=== PATIENT | female | born 1960 | race Caucasian/White ===

== ENCOUNTER → 2023-12-22 13:31 | Outpatient (REF) | payer BC, SELFPAY | LOC: WDC 13:31 | PROVIDERS: ATTENDING PHYSICIAN Obstetrics & Gynecology; FAMILY PHYSICIAN Family Medicine | DX: Z12.31 Encounter for screening mammogram for malignant neoplasm of breast (principal) | CPT/HCPCS: 77063; 77067 ==

== ENCOUNTER 2024-08-25 13:23 | Emergency (ER) | payer BC, SELFPAY ==
[2024-08-25 13:29] VITALS: BP 125/78
--- NOTE | 2024-08-25 13:54 | ED.GENMED ---
History of Present Illness
General
Chief Complaint: Musculo-Skeletal Complaint
Time Seen by Provider: 08/25/24 13:54
History of Present Illness
History of Present Illness:
TIME OF INITIAL ENCOUNTER: 1:55 PM
HPI: Patient stumbled and fell playing pickle ball injuring right wrist and right knee. She twisted awkwardly, twisted her right knee and most of her weight landed on the right upper extremity in a FOOSH mechanism of injury. There is no other
injury. Declines analgesia
EXAM:
GENERAL: Well appearing in mild distress
HEENT: Moist oral mucosa
NEUROLOGIC: Excellent strength all extremities, no obvious coordination deficits
PSYCHIATRIC: Appropriate mental status, normal insight and judgement
EXTREMITIES: Tenderness at distal radius, no edema, moves all extremities equally, mild to moderately decreased active range of motion at the right wrist due to pain, some very mild decreased active range of motion at the right knee due to pain with
no bony tenderness or instability on exam
SKIN: No rash, no lesions
NUMBER AND COMPLEXITY OF PROBLEMS ADDRESSED AT THE ENCOUNTER
� Chronic conditions affecting care: Denies any significant past medical history
� Acute Exacerbation and/or Progression of Chronic Illness: This is an acute problem
� Differential Diagnosis includes: Distal radius fracture, wrist sprain, knee sprain, lower extremity fracture
AMOUNT AND/OR COMPLEXITY OF DATA TO BE REVIEWED AND ANALYZED
� I performed an independent evaluation of and my interpretation is:
EKG:
CT:
X-rays: I personally viewed x-ray and agree with radiologist interpretation
Laboratory Studies:
Other:
� Review of other/old records: I reviewed records, the patient had a colonoscopy in 2020 and 2015
� Clinical information was obtained by an independent historian: I spoke to
� Prescriptions/Medications Considered but not given:
� Further testing considered but not performed:
RISK OF COMPLICATIONS AND/OR MORBIDITY OR MORTALITY OF PATIENT MANAGEMENT
� Social determinants of health affecting care: Lives at home
� Discussion with other providers:
� Escalation of care including admission/observation vs risk of discharge considered: Will splint and she is to follow-up with orthopedics
ANY OTHER UPDATES:
Phy Exam
Physical Exam
Physical Exam:
See HPI
Course
Orders/Labs/Results
Orders:
Orders
08/25/24 13:25
CR Knee- Right 4 Or More View* Urgent
Comment:
Reason For Exam: injury
CR Wrist - Right Min 3 Views Urgent
Comment:
Reason For Exam: injury
08/25/24 14:06
Knee Immobilizer Right-Treatme ONCE
Splints/Slings/Crut- Treatment ONCE
Crutches: No
Sling to: Right Arm
Location: Right
Vital Signs
Initial and Last Documented VS:
Initial Vital Signs
Temp Pulse Resp BP Pulse Ox
98.1 F 66 18 125/78 100
08/25/24 13:29 08/25/24 13:29 08/25/24 13:29 08/25/24 13:29 08/25/24 13:29
Last Documented Vital Signs
Temp Pulse Resp BP Pulse Ox
98.1 F 66 18 125/78 100
08/25/24 13:29 08/25/24 13:29 08/25/24 13:29 08/25/24 13:29 08/25/24 13:29
*Critical Care Note
Total Time (30-74mins, 75-104mins- exclusive of procedures): Not Applicable
ED Attending Note
-
Portions of this chart may have been created with voice recognition software.� Occasional wrong word or��sound alike� substitutions may have occurred due to the inherent limitations of voice recognition software.
Discharge Plan
Departure
Patient Disposition: Home (Routine Discharge)
Date of Disposition: 08/25/24
Time of Disposition: 14:07
Patient with high blood pressure during this ER visit?: Yes
Discharge Problem:
Distal radius fracture, right
Instructions: Knee Immobilizer (DC), Wrist Fracture (DC)
Prescriptions:
New
tramadol 50 mg tablet
50 mg PO BID PRN (Reason: Pain) Qty: 6 0RF
Referrals:
Edwin Fox MD [Active] - Follow up in 2-3 days
Activity Restrictions/Additional Instructions:
The x-ray shows a distal radius fracture with some displacement of the fracture fragments. I recommend that you follow-up with Dr. Fox.
Interventions
Interventions:
*Risk Screen - Suicide Last Done: 08/25/24 13:29
*General Assessment Last Done: 08/25/24 13:29
*Neglect/Abuse Screening Last Done: 08/25/24 13:29
ED-Musculoskeletal Assessment Last Done: 08/25/24 14:13
Discharge Date and Time
Print Language: SOU[place]
[2024-08-25 14:49] VITALS: BP 128/71
== END 2024-08-25 14:50 | disposition home or self-care (01) ==
LOC: EMR 13:23
PROVIDERS: EMERGENCY PHYSICIAN Emergency Medicine; FAMILY PHYSICIAN Family Medicine
DX: S52.591A Other fractures of lower end of right radius, initial encounter for closed fracture (principal); S89.91XA Unspecified injury of right lower leg, initial encounter; W01.0XXA Fall on same level from slipping, tripping and stumbling without subsequent striking against object, initial encounter
CPT/HCPCS: 29505; 99284; 73110; 73564

== ENCOUNTER 2024-08-31 06:24 | Day surgery (SDC) | payer BC, SELFPAY ==
[2024-08-29 13:38] VITALS: BMI 26.0
[2024-08-29 13:54] LABS: Hematocrit 36.4 % (37.0-47.0); Hemoglobin 12.3 g/dL (12.0-16.0); Mean Corp Hgb Conc. 33.8 g/dL (33.0-37.0); Mean Corpuscular Hgb 31.5 pg (27.0-31.0); Mean Corpuscular Volume 93.3 fL (81.0-99.0); Platelet Count 254 10^3/uL (130-400); Red Cell Dist. Width 13.2 % (11.5-14.5); White Blood Cell Count 6.9 10^3/uL (4.8-10.8)
[2024-08-31 11:46] VITALS: BP 141/75; BMI 26.0
[2024-08-31] MEDS: TYLENOL 1000 MG PO (11:53)
[2024-08-31 17:15] VITALS: BP 113/64; BP 141/75
--- NOTE | 2024-08-31 17:27 | W.IMMPOSTOP ---
Surgical Immed Post Op Note
-
Primary Surgeon: Aric Scott MD
Assisting Surgeon: Marge Carey PA-C
Pre-op Diagnosis: right distal radius fracture
Post-op Diagnosis: right distal radius fracture
Procedure Performed: open reduction internal fixation right distal radius
Anesthesia Type: general
Specimen / Cultures: none
Estimated Blood Loss: 5mL
Complications: none apparent
Operative Findings: dorsal comminution
Operative dictation # [id number]
[2024-08-31 17:30] VITALS: BP 118/65
[2024-08-31 17:45] VITALS: BP 120/63; BP 121/66
[2024-08-31 18:21] VITALS: BP 118/71
== END 2024-08-31 18:44 | disposition home or self-care (01) ==
LOC: SDS 06:24
PROVIDERS: ATTENDING PHYSICIAN Student in an Organized Health Care Education/Training Program; FAMILY PHYSICIAN Family Medicine
DX: S52.591A Other fractures of lower end of right radius, initial encounter for closed fracture (principal); X58.XXXA Exposure to other specified factors, initial encounter
CPT/HCPCS: 25607; C1713; 36415; 73100; 85027; 93005

== ENCOUNTER 2024-11-25 06:23 | Day surgery (SDC) | payer BC, SELFPAY ==
[2024-11-25] VITALS (8 sets, daily range): BP systolic 128–142; BP diastolic 60–81; BMI 25.0
--- NOTE | 2024-11-25 08:53 | HP.FOC2 ---
Focused History & Physical
Chief Complaint
HPI:
Chief Complaint: Right inguinal hernia
HPI / Indication for Planned Procedure: Patient is a 64-year-old female recently seen in outpatient surgical evaluation secondary to history of right inguinal swelling. It has slightly increased in size over the years. She has more of an awareness
of her hernia being present recently with an occasional pull/tugging sensation but no significant pain or discomfort. After recent evaluation the patient has chosen operative correction and presents today for repair.
Relevant Past Medical History: Other (Osteoporosis, previous history of tobacco use,)
Relevant Social History: Negative
Relevant Family History: Negative
Relevant Past Surgical History: Positive for (D&C, Mohs,)
Review of Systems
Review of Pertinent Systems: All Systems Negative
Medication
See Medication form for detailed medications: Yes
Medication List (including Herbals & OTC):
alendronate 70 mg tablet 70 mg PO TU 08/29/24
calcium 500 mg (as carbonate)-vitamin D3 3.125 mcg (125 unit) tablet 2 tab PO DAILY 08/29/24
Medications Reviewed: Yes
Allergies and Reactions
Patient has Allergies: No
Noted Allergies and Reactions:
Allergy/AdvReac Type Severity Reaction Status Date / Time
No Known Allergies Allergy Verified 11/23/24 13:05
Pertinent Physical Exam
All Other Systems: Negative
Head/Neck: Normal
Lungs: Normal
Heart: Normal
Abdomen: Other (Reducible right inguinal hernia)
Extremities: Normal
Neurological: Normal
Diagnosis / Assessment
64-year-old female presenting for scheduled operative correction symptomatic right inguinal hernia
Plan / Procedure
Robotic assisted laparoscopic repair right inguinal hernia with mesh
Anesthesia/Sedation to be done by Anesthesia Provider: Yes
--- NOTE | 2024-11-25 08:55 | W.SUR.PREOP ---
Pre-Operative Surgical Note
-
I have examined this patient prior to the performance of the scheduled procedure.
The patient's condition is unchanged from the time of the current History and
Physical and the patient is able to undergo the scheduled procedure.
[2024-11-25] MEDS: TYLENOL 1000 MG PO (10:34)
[2024-11-25] MEDS: NORMOSOL-R/PLASMALYTE-A 1000 IV (10:44)
--- NOTE | 2024-11-25 12:00 | W.IMMPOSTOP ---
Surgical Immed Post Op Note
-
Primary Surgeon: Ravi Mcmanus MD
Assisting Surgeon: Cl IVEY; Eloina Lynn
Pre-op Diagnosis: Right inguinal hernia
Post-op Diagnosis: Right inguinal hernia, direct
Procedure Performed: Robotic assisted MARIAM laparoscopic repair right inguinal hernia with mesh; 3D max large mid weight
Anesthesia Type: GETA +0.25% Marcaine with epi
Specimen / Cultures: None
Estimated Blood Loss: 6 mL
Complications: None immediate
Operative Findings: Right direct inguinal hernia; typical direct defect but 2 additional smaller tears also in the direct space identified. Indirect region normal. No femoral component. 3D max large mid weight mesh repair secured to Aquilino's
ligament with 2-0 Vicryl suture x 2. Peritoneal flap closed with 2-0 Monocryl STRATAFIX. Left inguinal region normal. No incidental findings.
--- NOTE | 2024-11-25 15:39 | OR.RPT ---
Operative Report
Operative Report
Date of operative procedure: 11/25/2024
Primary Surgeon: Ravi Mcmanus MD
Assisting Surgeon: Cl IVEY; Eloina Lynn
Pre-op Diagnosis: Right inguinal hernia
Post-op Diagnosis: Right inguinal hernia, direct
Procedure Performed: Robotic assisted laparoscopic MARIAM repair right inguinal hernia with mesh; 3D max large mid weight
Anesthesia Type: GETA +0.25% Marcaine
Specimen / Cultures: None/none
Estimated Blood Loss: 6 mL
Complications: None immediate
Indications for operative procedure: The patient is a 64-year-old female recently seen in outpatient surgical evaluation secondary to history of right inguinal swelling. It has slightly increased in size over the years. She has more of an
awareness of her hernia being present recently with an occasional pull/tugging sensation but no significant pain or discomfort. After recent evaluation the patient has chosen operative correction and presents today for repair.
Brief summary of operative Findings: Right direct inguinal hernia; typical direct defect but 2 additional smaller tears also in the direct space identified. Indirect region normal. No femoral component. 3D max large mid weight mesh repair secured
to Aquilino's ligament with 2-0 Vicryl suture x 2. Peritoneal flap closed with 2-0 Monocryl STRATAFIX. Left inguinal region normal. No incidental findings.
Operation detail: The patient was identified in the preoperative holding area. I confirmed the surgical site and side with the patient preoperatively which was then marked and initialed by myself. She was interviewed by the anesthesia and nursing
staff then brought back to the operating room. The patient was placed on the operating table in supine position. The bilateral upper extremities were carefully padded and tucked at the side utilizing the arm guard positioning system. Pneumatic
compression boots were on the bilateral lower extremities. Following induction of general endotracheal anesthesia the patient was administered Ancef 2 g IV for prophylactic antibiotic coverage. The patient's anterior abdominal wall was now widely
and sterilely prepped with ChloraPrep and then draped in the usual manner. The surgical timeout was completed and the procedure was confirmed.
I initially proceeded with Veress needle insufflation in the left subcostal midclavicular line location. Once insufflated to 12 mmHg pressure then a left midclavicular line 8 mm trocar was then placed. The robotic scope was inserted, there was no
evidence of iatrogenic injury from access. The Veress needle was withdrawn. An epigastric 8 mm trocar was placed just to the right of the midline. A right midclavicular line 8 mm trocar was placed. The patient was then transition into
Trendelenburg to expose the inguinal/pelvic space and the robot was docked.
At the surgeon console inspection of the pelvis confirmed the presence of a right direct inguinal hernia. There were no additional incidental intra-abdominal findings.
I initially began with creation of a peritoneal flap at the level of the right ASIS to the right medial umbilical ligament. The preperitoneal plane was now established along the length of the flap and developed inferiorly down to the inguinal
space. The medial dissection proceeded until the notch of the pubic symphysis was exposed at the midline followed by Aquilino's ligament on the right side. Aquilino's ligament was now cleared through the direct and femoral space. The preperitoneal
fat and peritoneum were reduced out of the direct space. The underside of Aquilino's ligament was exposed as well. The peritoneal flap was now mobilized laterally down to the internal ring. At the level of the internal ring the round ligament was
mobilized and carefully divided with monopolar cautery. The posterior peritoneal dissection continued overlying the right iliac space to meet up with the previous right-sided dissection. The dissection continued posterior laterally for full
exposure of the myopectineal orifice. There was no lipomatous protrusion in the indirect inguinal space.
With the myopectineal orifice now completely exposed hemostasis was confirmed. A 3D max large mid weight mesh was utilized for repair. The mesh was positioned parallel to the ileopubic tract. It was secured at 2 separate locations inferior
medially on Aquilino's ligament with 2 simple interrupted 2-0 Vicryl sutures. The patient was now begun to be taken out of Trendelenburg to confirm that the posterior aspect of the mesh was lying flat and that there was no shelling or undermining of
the mesh by the peritoneal edge. The peritoneal flap was now closed with a 2-0 Monocryl STRATAFIX spiral suture with a running Pelzer type stitch.
A flexible suction catheter was placed through an 8 mm trocar and introduced into the peritoneal flap to evacuate the air out of the preperitoneal space. This again confirmed good positioning of the inguinal hernia mesh. There was no shelling or
folding of the mesh and no undermining and mesh by the peritoneal edge. The peritoneal covering of the mesh was completely intact.
At this point the robot was undocked. All sponge instrument and needle counts were confirmed to be correct x 2. The CO2 insufflation was now carefully evacuated out of the abdominal cavity. The trocar sites were removed as well as the flexible
suction catheter. Skin was closed with 4-0 Monocryl. Sterile surgical glue dressings were applied. The patient tolerated the procedure well and was transferred to the recovery unit for routine postoperative monitoring. I was present for the
entirety of the operative procedure.
== END 2024-11-25 14:18 | disposition home or self-care (01) ==
LOC: SDS 06:23
PROVIDERS: ATTENDING PHYSICIAN Surgery
DX: K40.90 Unilateral inguinal hernia, without obstruction or gangrene, not specified as recurrent (principal)
CPT/HCPCS: 49650; C1781

== ENCOUNTER → 2024-12-30 10:30 | Outpatient (REF) | payer BC, SELFPAY | LOC: WDC 10:30 | PROVIDERS: ATTENDING PHYSICIAN Obstetrics & Gynecology; FAMILY PHYSICIAN Family Medicine | DX: Z12.31 Encounter for screening mammogram for malignant neoplasm of breast (principal) | CPT/HCPCS: 77063; 77067 ==